=== PATIENT | female | born 1990 ===

== ENCOUNTER 2017-12-29 13:45 | Emergency (ER) | payer OTHER, SELFPAY ==
--- NOTE | 2017-12-29 14:16 | ED PDOC ---
HPI: Chest Pain Time Seen by Provider: 12/29/17 14:06 Chief Complaint (Nursing): Palpitations History Per: Patient Onset/Duration Of Symptoms: Days (2) Current Symptoms Are (Timing): Intermittent Episodes Severity: Mild Additional Complaint(s): Palpitations assoc with feeling of anxiety x 2 days. Has been unable to sleep. Denies drug usage. Has been using Lexapro from friend x 2 days to help her sleep. Past Medical History Vital Signs: Last Vital Signs Temp 98.0 F 12/29/17 17:16 Pulse 75 12/29/17 17:16 Resp 14 12/29/17 17:16 BP 122/65 12/29/17 17:16 Pulse Ox 100 12/29/17 17:16 - Medical History Other PMH: Heart murmur - Family History Family History: States: Unknown Family Hx - Home Medications Home Medications: Ambulatory Orders Medication Instructions Recorded Naproxen [Naprosyn] 500 mg PO BID PRN #20 tablet 01/09/16 Doxylamine Succinate [Unisom Sleep 25 mg PO HS PRN #10 tablet 12/29/17 Aid] Naproxen [Naprosyn] 1 tab PO BID PRN #30 tab 12/29/17 - Allergies Allergies/Adverse Reactions: Allergies Allergy/AdvReac Type Severity Reaction Status Date / Time No Known Allergies Allergy Verified 11/27/16 15:35 Review of Systems Cardiovascular: Positive for: Palpitations. Negative for: Chest Pain Respiratory: Negative for: Shortness of Breath Neurological: Negative for: Dizziness Psych: Positive for: Anxiety Physical Exam - Reviewed Nursing Documentation Reviewed: Yes Vital Signs Reviewed: Yes - Physical Exam Appears: Positive for: Non-toxic, No Acute Distress Head Exam: Positive for: ATRAUMATIC, NORMAL INSPECTION, NORMOCEPHALIC Skin: Positive for: Normal Color, Warm, DRY Eye Exam: Positive for: EOMI, Normal appearance, PERRL ENT: Positive for: Normal ENT Inspection Neck: Positive for: Normal, Painless ROM Cardiovascular/Chest: Positive for: Regular Rate, Rhythm. Negative for: Murmur Respiratory: Positive for: CNT, Normal Breath Sounds Gastrointestinal/Abdominal: Positive for: Normal Exam, Soft Back: Positive for: Normal Inspection Extremity: Positive for: Normal ROM. Negative for: Calf Tenderness, Swelling Neurologic/Psych: Positive for: Alert, Oriented - Laboratory Results Result Diagrams: 12/29/17 14:40 12/29/17 14:40 - ECG O2 Sat by Pulse Oximetry: 99 Disposition - Clinical Impression Clinical Impression: Insomnia, Palpitations - Patient ED Disposition Is Patient to be Admitted: Transfer of Care - Disposition Referrals: [facility] [Outside] ([facility] EN 2-3 [facility] A [facility]) Disposition: Transfer of Care Disposition Time: 15:00 Condition: GOOD Prescriptions: Doxylamine Succinate [Unisom Sleep Aid] 25 mg PO HS PRN #10 tablet PRN Reason: Insomnia Naproxen [Naprosyn] 1 tab PO BID PRN #30 tab PRN Reason: Pain Instructions: Insomnia, Palpitations Print Language: URDU Patient Signed Over To: Radha Lowery
[2017-12-29 14:52] LABS: BASO % 0.8 % (0.0-2.0); EOS # 0.1 K/uL (0.0-0.7); EOS % 1.4 % (0.0-4.0); HEMOGLOBIN 13.5 g/dL (12.0-16.0); LYMPH # 1.7 K/uL (1.0-4.3); LYMPH % 26.3 % (20.0-40.0); MEAN CELL VOLUME 89.9 fl (81.0-99.0); MEAN CORPUSCULAR HEMOGLOBIN 30.4 pg (27.0-31.0); MEAN CORPUSCULAR HGB CONC 33.8 g/dL (33.0-37.0); MEAN PLATELET VOLUME 10.1 fl (7.2-11.7); MONO # 0.4 K/uL (0.0-0.8); MONO % 6.7 % (0.0-10.0); NEUT # 4.3 K/uL (1.8-7.0); NEUT % 64.8 % (50.0-75.0); RBC 4.43 Mil/uL (3.80-5.20); RED CELL DISTRIBUTION WIDTH 14.2 % (11.5-14.5); WHITE BLOOD COUNT 6.6 K/uL (4.8-10.8)
[2017-12-29 14:57] LABS: ALB/GLOB RATIO 1.1 (1.0-2.1); ALBUMIN 4.3 g/dL (3.5-5.0); ALT/SGPT 28 U/L (9-52); AST/SGOT 21 U/L (14-36); BLOOD UREA NITROGEN 9 mg/dl (7-17); CALCIUM 9.4 mg/dL (8.4-10.2); GFR AFRICAN-AMERICAN > 60; GFR NON-AFRICAN AMERICAN > 60
[2017-12-29 15:12] VITALS: RESP 14
--- NOTE | 2017-12-29 15:14 | ED PDOC ---
- Laboratory Results Result Diagrams: 12/29/17 14:40 12/29/17 14:40 Urine POC: Negative Urine dip results: Positive for: Blood. Negative for: Leukocyte Esterase, Nitrate, Ketones, Glucose - ECG O2 Sat by Pulse Oximetry: 99 Pulse Ox Interpretation: Normal Medical Decision Making Medical Decision Making: Time: 15:[address] Colvin. Patient with pending labs and reevaluation. On discussion with patient, she reports difficulty sleeping and chest pain. She is reporting that there are several reasons she thinks she is having trouble sleeping which includes a lot of pain in the back from scoliosis and stress because of recent surgery to face, and just returned from [place] for that, in addition she had a reash that affected her skin on Sunday. New labs added which include --Troponin I --Thyroid Stimulating hormone --Phosphorous --Magnesium --Urine dipstick Labs unremarkable. DW pt findings. Pt denies suicidal or homicidal ideations and does not believe she needs any emergency psychiatric services. Requesting sleep medicine and believes all symptoms due to lack of sleep. Disposition - Clinical Impression Clinical Impression: Insomnia, Palpitations - POA Present On Arrival: None - Disposition Referrals: [facility] [Outside] ([facility] EN 2-3 [facility] A [facility]) Disposition: Routine/Home Disposition Time: 16:39 Condition: GOOD Prescriptions: Doxylamine Succinate [Unisom Sleep Aid] 25 mg PO HS PRN #10 tablet PRN Reason: Insomnia Naproxen [Naprosyn] 1 tab PO BID PRN #30 tab PRN Reason: Pain Instructions: Insomnia, Palpitations Print Language: MONGOLIAN
--- NOTE | 2017-12-29 16:20 | RAD ---
HISTORY: Palpitations. COMPARISON: No prior. TECHNIQUE: Chest PA and lateral FINDINGS: LUNGS: No active pulmonary disease. PLEURA: No significant pleural effusion identified. No pneumothorax apparent. CARDIOVASCULAR: Right cardiac border not visualized due to a pectus excavatum OSSEOUS STRUCTURES: Pectus excavatum. VISUALIZED UPPER ABDOMEN: Normal. OTHER FINDINGS: None. IMPRESSION: No active disease. Pectus excavatum.
[2017-12-29 17:17] VITALS: BP 122/65; PULSE 75; TEMP 98
[2017-12-30 09:28] VITALS: O2SAT 99
--- NOTE | 2017-12-31 13:36 | CARD ---
APPROVED REPORT EKG Measurement Heart [id number] <Conclusion> Normal sinus rhythm Biatrial enlargement Right axis deviation Incomplete right bundle branch block Possible Right ventricular hypertrophy Abnormal ECG
== END 2017-12-29 17:17 | disposition home or self-care (01) ==
LOC: H.ER 13:45
DX: R00.2 Palpitations (principal); G47.00 Insomnia, unspecified; F41.9 Anxiety disorder, unspecified